=== PATIENT | female | born 1930 | race Caucasian/White ===

== ENCOUNTER → 2018-12-17 | Outpatient (REF) | payer MEDICARE, OTHER ==
[~2018-12-17] MED LIST: ASPI81TA26 PO; ATOR40TA75 PO; COLA100C5 PO; DICL1GEL3 TD; FERR325T3 PO; FOLI1TAB11 PO; LASI20TA3 PO; POTA8TAB3 PO; PRED10TA2 PO; PROC30TA PO; PROT1TAB2 PO; SITA50TAB PO; TOPR25TA PO
[2018-12-17 11:51] LABS: HEMOGLOBIN 13.3 g/dl (12.0-15.5); MEAN CORPUSCULAR HEMOGLOBIN 30.6 pg (27.0-33.0); MEAN CORPUSCULAR HGB CONC 32.4 g/dl (32.0-36.5); MEAN CORPUSCULAR VOLUME 94.5 fl (80.0-96.0); PLATELET COUNT, AUTOMATED 275 10^3/uL (150-450); RED BLOOD COUNT 4.34 10^6/uL (4.00-5.40); WHITE BLOOD COUNT 9.2 10^3/uL (4.0-10.0)
[2018-12-17 12:14] LABS: CALCIUM LEVEL 9.4 MG/DL (8.8-10.2); CREATININE FOR GFR 1.18 MG/DL (0.55-1.30); PERCENT SATURATION 35.9 % (13.2-45.0); POTASSIUM SERUM 3.9 MEQ/L (3.5-5.1)
[2018-12-17 12:30] LABS: HEMOGLOBIN A1c 8.2 %
== END ==
LOC: M SFHCPLAZ 10:29
PROVIDERS: ATTEND Family Medicine
DX: E11.9 Type 2 diabetes mellitus without complications (principal); I10 Essential (primary) hypertension; E55.9 Vitamin D deficiency, unspecified; Z87.19 Personal history of other diseases of the digestive system

== ENCOUNTER → 2019-03-26 | Outpatient (CLI) | payer MEDICARE, OTHER ==
--- NOTE | 2019-03-26 09:36 | REP ---
Clinical: Pain. Technique: AP, lateral, bilateral oblique views of the left foot. Findings: Age-related osteopenia and generalized degenerative changes are appreciated. While no definite acute fractures appreciated. A subtle injury involving the second proximal phalanx cannot be excluded and should be correlated with physical examination. Impression: Limited by osteopenia and degenerative changes. Cannot definitively exclude subtle fracture along the distal aspect of the second proximal phalanx. Electronically Signed by Giovany Gomez MD 03/26/2019 09:27 A
== END ==
LOC: M RAD 08:53
PROVIDERS: ATTEND Family Medicine
DX: M85.872 Other specified disorders of bone density and structure, left ankle and foot (principal); M79.675 Pain in left toe(s)
CPT/HCPCS: 73630; G0463

== ENCOUNTER → 2019-04-23 | Outpatient (REF) | payer MEDICARE, OTHER ==
[2019-04-23 10:36] LABS: CALCIUM LEVEL 9.3 MG/DL (8.8-10.2); CREATININE FOR GFR 1.26 MG/DL (0.55-1.30); GLOMERULAR FILTRATION RATE 42.6 (>32); POTASSIUM SERUM 4.2 MEQ/L (3.5-5.1)
[2019-04-23 10:52] LABS: HEMOGLOBIN A1c 7.4 %
== END ==
LOC: M SFHCPLAZ 08:37
PROVIDERS: ATTEND Family Medicine
DX: E11.9 Type 2 diabetes mellitus without complications (principal); I10 Essential (primary) hypertension
CPT/HCPCS: 36415; 80048; 83036; G0463

== ENCOUNTER → 2019-11-18 | Outpatient (REF) | payer MEDICARE, OTHER ==
[2019-11-18 15:39] LABS: CALCIUM LEVEL 9.2 MG/DL (8.8-10.2); CREATININE FOR GFR 1.29 MG/DL (0.55-1.30); GLOMERULAR FILTRATION RATE 41.4 (>32); POTASSIUM SERUM 4.2 MEQ/L (3.5-5.1)
[2019-11-18 15:59] LABS: HEMOGLOBIN A1c 8.2 %
== END ==
LOC: M SFHCPLAZ 11:13
PROVIDERS: ATTEND Family Medicine
DX: E11.9 Type 2 diabetes mellitus without complications (principal); I12.9 Hypertensive chronic kidney disease with stage 1 through stage 4 chronic kidney disease, or unspecified chronic kidney disease; N18.3 Chronic kidney disease, stage 3 (moderate)
CPT/HCPCS: 36415; 80048; 83036; G0463